=== PATIENT | female | born 1990 | race Caucasian/White ===

== ENCOUNTER 2019-10-17 14:22 | Inpatient (IN) | payer OTHER ==
[2019-10-17] MEDS ORDERED: morphine CARPU-JECT 4 MG/1 ML DISP.SYRIN IVPUSH ONE ×2 (15:12→17:33)
[2019-10-17] MEDS ORDERED: ACETAMINOPHEN 1000 MG/100 ML VIAL (NON FORMULARY) IVPB ONE (15:12)
[2019-10-17] MEDS ORDERED: MORPHINE SULFATE 2 MG/ML VIAL ONE (15:57)
[2019-10-17] MEDS ORDERED: VANCOMYCIN 1 GM in D5W (PRE-DOCKED) 1,000 MG/250 ML IVPB ONE (15:57)
[2019-10-17 16:36] LABS: INR 1.37 (0.83-1.09); PROTHROMBIN TIME (PATIENT) 16.2 SEC (9.7-13.0)
[2019-10-17 16:39] LABS: ACTIVATED PTT 22.8 SECONDS (25.2-36.5)
[2019-10-17] MEDS ORDERED: LACTATED RINGERS SOLUTION 1000 ML INFUS.BAG IV ONE (17:33)
[2019-10-17 18:06] LABS: BASO % 0.1 % (0-2.0); HEMATOCRIT 41.2 % (32.4-45.2); HEMOGLOBIN 13.6 GM/dL (10.7-15.3); LYMPH % 6.1 % (8-40); MCH 32.5 pg (25.7-33.7); MEAN CELL VOLUME 98.6 fl (80-96); MEAN PLT VOLUME 10.5 fl (7.5-11.1); MONO % 4.4 % (3.8-10.2); NEUT % 89.4 % (42.8-82.8); PLATELET COUNT 196 K/MM3 (134-434); RBC 4.18 M/mm3 (3.60-5.2); RDW 12.8 % (11.6-15.6); VENOUS PC02 38.9 mmHg (38-52); VENOUS PH 7.37 (7.31-7.41); WHITE BLOOD COUNT 11.5 K/mm3 (4.0-10.0)
[2019-10-17 18:07] LABS: VENOUS PO2 < 49 mmHg (28-48)
--- NOTE | 2019-10-17 18:27 | PDOC ---
History of Present Illness - General Chief Complaint: Pain Stated Complaint: VOMITING,FEVER Time Seen by Provider: 10/17/19 15:15 - History of Present Illness Initial Comments: The pt is a 28F w/ a history of asthma who presents for evaluation of fevers and abdominal pain. The pt is s/p liposuction yesterday. She states she has severe abdominal/back pain post-operatively. She tried taking Percocet at home with little relief. She endorses nausea w/o vomiting. She denies cough, congestion, generalized aches, or sick contacts. PMH: Asthma PSH: breast augmentation, buttocks fat transplantation Meds: Denies SH: Denies x3 10/17/19 18:37 Past History - Past Medical History Allergies/Adverse Reactions: Allergies Allergy/AdvReac Type Severity Reaction Status Date / Time No Known Allergies Allergy Verified 10/17/19 16:21 Review of Systems - Review of Systems Able to Perform ROS?: Yes Comments:: GENERAL/CONSTITUTIONAL: No chills. No weakness HEAD, EYES, EARS, NOSE AND THROAT: No change in vision. No change in hearing. No sore throat CARDIOVASCULAR: No chest pain or shortness of breath RESPIRATORY: Denies cough, hemoptysis GASTROINTESTINAL: No vomiting, diarrhea or constipation GENITOURINARY: No dysuria, frequency, or change in urination SKIN: +post op wounds and abdominal redness NEUROLOGIC: No headache, vertigo, loss of consciousness, or change in strength/ sensation ENDOCRINE: No increased thirst. No abnormal weight change HEMATOLOGIC/LYMPHATIC: No anemia, easy bleeding, or history of blood clots ALLERGIC/IMMUNOLOGIC: No hives or skin allergy 10/17/19 18:23 Is the patient limited Korean proficient: No *Physical Exam - Vital Signs Last Vital Signs Temp Pulse Resp BP Pulse Ox 100.1 F H 100 H 18 102/54 L 99 10/17/19 17:51 10/17/19 17:51 10/17/19 17:51 10/17/19 17:51 10/17/19 17:51 - Physical Exam GENERAL: Awake, alert, and oriented to person/place/time, in no acute distress HEAD: No signs of trauma, normoc ephalic, atraumatic EYES: PERRLA, EOMI, sclera anicteric, conjunctiva clear ENT: Hearing grossly normal, nares patent, oropharynx clear without exudates. Moist mucosa LUNGS: No distress, speaks in full sentences, clear to auscultation bilaterally HEART: Regular rate and rhythm, normal S1 and S2, no murmurs appreciated, peripheral pulses normal and equal bilaterally ABDOMEN: Soft, generally erythematous, surgical wounds without purulent drainage , no wound induration, dressings C/D/I EXTREMITIES: Normal inspection, Normal range of motion, no edema. No clubbing or cyanosis NEUROLOGICAL: Cranial nerves II through XII grossly intact. Normal speech, no focal sensorimotor deficits SKIN: Warm, Dry 10/17/19 20:44 ED Treatment Course - LABORATORY CBC & Chemistry Diagram: 10/17/19 15:30 10/17/19 17:12 - ADDITIONAL ORDERS Additional order review: Laboratory Results 10/17/19 10/17/19 15:30 15:30 PT with INR 16.20 H INR 1.37 H PTT (Actin FS) 22.8 L VBG pH 7.37 POC VBG pCO2 38.9 POC VBG pO2 < 49 H VBG HCO3 21.8 L VBG O2 Sat (Ceci) 51.6 L VBG Base Excess -2.6 L 10/17/19 15:30 RBC 4.18 MCV 98.6 H MCHC 33.0 RDW 12.8 MPV 10.5 Neutrophils % 89.4 H Lymphocytes % 6.1 L Monocytes % 4.4 Eosinophils % 0.0 Basophils % 0.1 - RADIOLOGY Radiology Studies Ordered: Category Date Time Status CHEST X-RAY PORTABLE* [RAD] Stat Radiology 10/17/19 15:43 Completed Radiograph Interpretation: CT/ABDOMEN & PELVIS CT WITH CONTR IMPRESSION: 1. Extensive subcutaneous emphysema throughout the abdomen and pelvis presumably related to recent procedures. Clinical correlation is advised. 2. No evidence of acute pathology within the abdomen or pelvis. Please see above discussion. 10/17/19 21:42 - Medications Given in the ED: ED Medications Discontinued Medications Generic Name Dose Route Start Last Admin Trade Name Freq PRN Reason Stop Dose Admin Acetaminophen 1,000 mg 10/17/19 15:12 10/17/19 16:10 Ofirmev Injection - IVPB 10/17/19 15:13 1,000 mg ONCE ONE Administration Morphine Sulfate 2 mg 10/17/19 15:12 10/17/19 16:10 Morphine Injection - IVPUSH 10/17/19 15:13 2 mg ONCE ONE Administration Vancomycin HCl 1,000 mg 10/17/19 15:57 10/17/19 17:02 Vancomycin (Pre-Docked) IVPB 10/17/19 15:58 1,000 mg ONCE ONE Administration Protocol Medical Decision Making - Medical Decision Making The pt is a 28F w/ a history of asthma who presents for evaluation of fevers and abdominal pain s/p liposuction yesterday Pt febrile with tachycardia Will treat with IV abx for presumed post op infection Mild leukocytosis No anemia Serum Preg 10/17/19 18:42 Lytes unremarkable Lactate wnl LFTs wnl Tbili noted but not likely biliary dz No SOLANGE CT A&P read pending 10/17/19 20:45 CT w/ extensive SQ emphysema, no intraabdominal pathology Pt signed out to Admitting team PT fever and tachycardia improving Plastic Surgeon: Marcelino Goldstein [phone] 10/17/19 21:42 Discharge - Discharge Information Problems reviewed: Yes Clinical Impression/Diagnosis: Tachycardia, Postoperative fever Fever Qualifiers: Fever type: unspecified Qualified Code(s): R50.9 - Fever, unspecified Condition: Stable - Admission Yes - Follow up/Referral - Patient Discharge Instructions - Post Discharge Activity
[2019-10-17 19:52] LABS: ALBUMIN 3.4 g/dl (3.4-5.0); BILIRUBIN,TOTAL 1.4 mg/dL (0.2-1); CALCIUM 8.3 mg/dL (8.5-10.1); CREATININE 0.7 mg/dL (0.55-1.3); POTASSIUM 3.6 mmol/L (3.5-5.1); TOT PROT 7.1 g/dl (6.4-8.2)
[2019-10-17] MEDS ORDERED: morphine SULFATE 4 MG/ML VIAL ONE (20:00)
--- NOTE | 2019-10-17 21:38 | PN ---
Teaching Attending Note Name of Resident: Gregor Sanchez ATTENDING PHYSICIAN STATEMENT I saw and evaluated the patient. I reviewed the resident's note and discussed the case with the resident. I agree with the resident's findings and plan as documented. SUBJECTIVE: 28-year-old woman with a history of asthma who underwent abdominal liposuction Via laparoscopic approach Lower abdomen as well as right lateral chest on 2019 under local anesthesia with plastic surgeon. Experienced severe back and abdominal pain for 1 day. Experienced some fevers and chills at home. Took Percocet at home without much relief. Is having BMs. In the emergency room was found to have a low-grade fever and was tachycardic. Abdomen/pelvis CT only showed some subcutaneous air status post recent procedure. Last Vital Signs Temp Pulse Resp BP Pulse Ox 99.2 F 90 16 104/56 L 98 10/18/19 00:55 10/18/19 00:55 10/18/19 00:55 10/18/19 00:55 10/18/19 00:55 GENERAL: Well developed, well nourished. Awake and alert. No acute distress. HEENT: Normocephalic, atraumatic. PERRLA, EOMI. No conjunctival pallor. Sclera are non- icteric. Moist mucous membranes. Oropharynx is clear. NECK: Supple. Full ROM. No JVD. Carotid pulses 2+ and symmetric, without bruits. No thyromegaly. No lymphadenopathy. CARDIOVASCULAR: Regular rate and rhythm. No murmurs, rubs, or gallops. Distal pulses are 2+ and symmetric. PULMONARY: No evidence of respiratory distress. Lungs clear to auscultation bilaterally. No wheezing, rales or rhonchi. ABDOMINAL: Laparoscopic approach scars in suprapubic region, right lateral chest appears to be healing well, no discharge appreciated, bowel sounds normal in 4 quadrants. Abdomen nondistended. Tenderness to palpation, seems to be out of proportion to findings. MUSCULOSKELETAL Normal range of motion at all joints. No bony deformities or tenderness. No CVA tenderness. EXTREMITIES: No cyanosis. No clubbing. No edema. No calf tenderness. SKIN: Warm and dry. Normal capillary refill. No rashes. No jaundice. PSYCHIATRIC: Cooperative. Good eye contact. Appropriate mood and affect. Abnormal Lab Results 10/17/19 10/17/19 10/17/19 15:30 15:30 15:30 WBC 11.5 H MCV 98.6 H Absolute Neuts (auto) 10.2 H Neutrophils % 89.4 H Lymphocytes % 6.1 L PT with INR 16.20 H INR 1.37 H PTT (Actin FS) 22.8 L POC VBG pO2 < 49 H VBG HCO3 21.8 L VBG O2 Sat (Ceci) 51.6 L VBG Base Excess -2.6 L Chloride Carbon Dioxide Random Glucose Calcium Total Bilirubin 10/17/19 17:12 WBC MCV Absolute Neuts (auto) Neutrophils % Lymphocytes % PT with INR INR PTT (Actin FS) POC VBG pO2 VBG HCO3 VBG O2 Sat (Ceci) VBG Base Excess Chloride 108 H Carbon Dioxide 20 L Random Glucose 114 H Calcium 8.3 L Total Bilirubin 1.4 H Imaging studies reviewed Extensive subcutaneous emphysema throughout the abdomen and pelvis presumably related to recent procedures. No CT evidence of acute appendicitis or diverticulitis. No evidence of acute bony pathology. Examination of pelvis demonstrates no evidence of pelvic masses, fluid collections or lymphadenopathy. ASSESSMENT AND PLAN: Sepsis secondary to abdominal postoperative site infection. Tachycardia, leukocytosis, low-grade fever. No drainable fluid collection seen on abdomen pelvis CT. Blood cultures x2 Vancomycin and Zosyn empirically Follow-up official CT of abdomen pelvis report ID consult IV fluid hydration Pain controlMorphine IV as needed Zofran IV as needed if nausea and vomiting EKG DVT prophylaxis with heparin subcutaneously
--- NOTE | 2019-10-17 21:49 | HP ---
CHIEF COMPLAINT: Lower back pain with nausea for the past 12 hours PCP: None HISTORY OF PRESENT ILLNESS: This is a 28 year old female with PMH of asthma and psoriasis. She resented to the ER with complaints of lower back pain associated with subjective fevers, 1 episode of NBNB vomiting, and nausea for the past 12 hours. She is POD#1 after liposuction (Woo Goldstein in [place]). She felt mild, generalized soreness after the procedure yesterday evening, which she attributed to post op pain. She endorsed nausea, and 1 episode of NBNB vomiting after consuming pasta. This morning at 8AM she felt dizzy, and fell down while she was walking to the bathroom. There was no LOC or head trauma , and she landed on her buttocks. Around 10AM she felt sudden onset, sharp, severe, persistent, non radiating lower back, rated 10/10 in intensity. She took Xanax and Percocet, which did not provide any relief. She endorses dizziness, light headedness, nausea, palpitations, but no SOB, chest pain, diarrhea, constipation, dysuria, urgency, or hematuria. She has had breast augmentation and a buttock lift in the past, without any similar complications. ER course was notable for: (1) WBC 11.5, Temp 102.4, HR 100, LA normal (2) CT AP: Extensive subcutaneous emphysema throughout abdomen and pelvis with no acute pathlogy (3) CXR: No evidence of atelectasis Recent Travel: None PAST MEDICAL HISTORY: Asthma (takes albuterol), and psoriasis (tried cortisone once) PAST SURGICAL HISTORY: Multiple abortions (patient unable to quantify), last one in August Breast and buttock augmentation in 2013 Appendectomy 2008 Social History: Smoking: None Alcohol: None Drugs: None She is unsure when her LMP was, but states that her menses had been regular until 5 days ago when she took Plan B. She is currently only sexually active with her partner, and uses only Plan B multiple times a month (4-5) for contraception. She has had multiple abortions in the past, last one in August 2019 (unable to quantify). Allergies Oysters No Known Allergies Allergy (Verified 10/17/19 16:21) HOME MEDICATIONS: REVIEW OF SYSTEMS CONSTITUTIONAL: Fevers, chills Absent: diaphoresis, generalized weakness, malaise, loss of appetite, weight change HEENT: Absent: rhinorrhea, nasal congestion, throat pain, throat swelling, difficulty swallowing, mouth swelling, ear pain, eye pain, visual changes CARDIOVASCULAR: palpitations, lightheadedness Absent: chest pain, syncope, irregular heart rate, peripheral edema RESPIRATORY: Absent: cough, shortness of breath, dyspnea with exertion, orthopnea, wheezing, stridor, hemoptysis GASTROINTESTINAL: nausea, vomiting, Absent: abdominal pain, abdominal distension, diarrhea, constipation, melena, hematochezia GENITOURINARY: Absent: dysuria, frequency, urgency, hesitancy, hematuria, flank pain, genital pain MUSCULOSKELETAL: Absent: myalgia, arthralgia, joint swelling, back pain, neck pain SKIN: Absent: rash, itching, pallor HEMATOLOGIC/IMMUNOLOGIC: Absent: easy bleeding, easy bruising, lymphadenopathy, frequent infections ENDOCRINE: Absent: unexplained weight gain, unexplained weight loss, heat intolerance, cold intolerance NEUROLOGIC: Absent: headache, focal weakness or paresthesias, dizziness, unsteady gait, seizure, mental status changes, bladder or bowel incontinence PSYCHIATRIC: Absent: anxiety, depression, suicidal or homicidal ideation, hallucinations. PHYSICAL EXAMINATION Vital Signs - 24 hr 10/17/19 17:51 Temperature 100.1 F H Pulse Rate [ 100 H Radial] Respiratory 18 Rate Blood Pressure 102/54 L [Right Arm] O2 Sat by Pulse 99 Oximetry (%) GENERAL: Awake, alert, and fully oriented, in no acute distress. HEAD: Normal with no signs of trauma. EYES: Pupils equal, round and reactive to light, extraocular movements intact, sclera anicteric, conjunctiva clear. No lid lag. EARS, NOSE, THROAT: Ears normal, nares patent, oropharynx clear without exudates NECK: Normal range of motion, supple without lymphadenopathy, JVD, or masses. LUNGS: Breath sounds equal, clear to auscultation bilaterally. No wheezes, and no crackles. No accessory muscle use. HEART: Regular rate and rhythm, normal S1 and S2 without murmur, rub or gallop. ABDOMEN: soft, mild, generalized, patchy erythema, non tender, mildly distended , supra and infra umbilical laproscopic incision sites without drainage or fluctuation. Lower back spinal as well as paraspinal tenderness with emphysema, laproscopic flank incision sites with mild erythema, mild serous discharge on he left incision site with no tenderness to palpation. MUSCULOSKELETAL: Normal range of motion at all joints. No bony deformities or tenderness. No CVA tenderness. UPPER EXTREMITIES: 2+ pulses, warm, well-perfused. No cyanosis. No clubbing. No peripheral edema. LOWER EXTREMITIES: 2+ pulses, warm, well-perfused. No calf tenderness. No peripheral edema. NEUROLOGICAL: Cranial nerves II-XII intact. Normal speech. Normal gait. PSYCHIATRIC: Cooperative. Good eye contact. Appropriate mood and affect. SKIN: Scaly, eczematous patch on left elbow Laboratory Results - last 24 hr 10/17/19 10/17/19 10/17/19 15:30 15:30 15:30 WBC 11.5 H RBC 4.18 Hgb 13.6 Hct 41.2 MCV 98.6 H MCH 32.5 MCHC 33.0 RDW 12.8 Plt Count 196 MPV 10.5 Absolute Neuts (auto) 10.2 H Neutrophils % 89.4 H Lymphocytes % 6.1 L Monocytes % 4.4 Eosinophils % 0.0 Basophils % 0.1 Nucleated RBC % 0 PT with INR 16.20 H INR 1.37 H PTT (Actin FS) 22.8 L VBG pH POC VBG pCO2 POC VBG pO2 VBG HCO3 VBG O2 Sat (Ceci) VBG Base Excess Sodium Cancelled Potassium Cancelled Chloride Cancelled Carbon Dioxide Cancelled Anion Gap Cancelled BUN Cancelled Creatinine Cancelled Est GFR (CKD-EPI)AfAm Cancelled Est GFR (CKD-EPI)NonAf Cancelled Random Glucose Cancelled Lactic Acid Calcium Cancelled Total Bilirubin Cancelled AST Cancelled ALT Cancelled Alkaline Phosphatase Cancelled Total Protein Cancelled Albumin Cancelled Serum , Qual 10/17/19 10/17/19 10/17/19 15:30 15:30 15:30 WBC RBC Hgb Hct MCV MCH MCHC RDW Plt Count MPV Absolute Neuts (auto) Neutrophils % Lymphocytes % Monocytes % Eosinophils % Basophils % Nucleated RBC % PT with INR INR PTT (Actin FS) VBG pH 7.37 POC VBG pCO2 38.9 POC VBG pO2 < 49 H VBG HCO3 21.8 L VBG O2 Sat (Ceci) 51.6 L VBG Base Excess -2.6 L Sodium Potassium Chloride Carbon Dioxide Anion Gap BUN Creatinine Est GFR (CKD-EPI)AfAm Est GFR (CKD-EPI)NonAf Random Glucose Lactic Acid 1.6 Calcium Total Bilirubin AST ALT Alkaline Phosphatase Total Protein Albumin Serum , Qual Negative 10/17/19 17:12 WBC RBC Hgb Hct MCV MCH MCHC RDW Plt Count MPV Absolute Neuts (auto) Neutrophils % Lymphocytes % Monocytes % Eosinophils % Basophils % Nucleated RBC % PT with INR INR PTT (Actin FS) VBG pH POC VBG pCO2 POC VBG pO2 VBG HCO3 VBG O2 Sat (Ceci) VBG Base Excess Sodium 137 Potassium 3.6 Chloride 108 H Carbon Dioxide 20 L Anion Gap 9 BUN 8.0 Creatinine 0.7 Est GFR (CKD-EPI)AfAm 136.66 Est GFR (CKD-EPI)NonAf 117.91 Random Glucose 114 H Lactic Acid Calcium 8.3 L Total Bilirubin 1.4 H AST 19 ALT 20 Alkaline Phosphatase 66 Total Protein 7.1 Albumin 3.4 Serum , Qual ASSESSMENT/PLAN: 28F with PMH of asthma and psoriasis, presented to the ER with complaints of lower back pain associated with subjective fevers, 1 episode of NBNB vomiting, and nausea for the past 12 hours. She is POD#1 after liposuction #Sepsis - Sepsis likely 2/2 post-op wound infection - SIRS 3/4: WBC 11.4, Temp 102, HR 100 on admission - LA 1.6 - Blood, urine cx pending - B HcG negative - UA pending - CT AP: Extensive subcutaneous emphysema throughout abdomen and pelvis with no acute pathlogy - CXR: No evidence of atelectasis - ID (Dr. Steiner) consulted - Started on Zosyn 3.375 Q8 and Vanco 1g Q12 - Morphine 2mg Q6H for pain #Bilirubinemia - Bili 1.6, mildly elevated, no RUQ pain, fever, signs of jaundice, or hemolytic anemia in labs, low suspicion of underlying pathology - Will continue to monitor #Hx of Psoriasis - Eczematous patch on left elbow - Outpatient F/U with dermatology #FEN - N/S @ 100 - Cl 108 - Glucose 114 - Ca 8.3 - F/U CMP in AM - Regular diet #DVT PE - Heparin 5000 BID Visit type - Emergency Visit Emergency Visit: Yes ED Registration Date: 10/17/19 Care time: The patient presented to the Emergency Department on the above date and was hospitalized for further evaluation of their emergent condition. - New Patient This patient is new to me today: Yes Date on this admission: 10/18/19 - Critical Care Critical Care patient: No ATTENDING PHYSICIAN STATEMENT I saw and evaluated the patient. I reviewed the resident's note and discussed the case with the resident. I agree with the resident's findings and plan as documented. SUBJECTIVE: OBJECTIVE: ASSESSMENT AND PLAN:
[2019-10-17] MEDS ORDERED: HEPARIN NA (PORCINE) 5,000 UNITS/ML 1ML VIAL SQ SCH (22:00)
--- NOTE | 2019-10-17 22:14 | PDOC ---
Attending Attestation - Resident Resident Name: Camron Georges - ED Attending Attestation I have performed the following: I have examined & evaluated the patient, The case was reviewed & discussed with the resident, I agree w/resident's findings & plan - HPI HPI: 10/17/19 22:10 28F w/ a history of asthma who presents for evaluation of fevers and abdominal pain a/w n/v today. The pt is s/p liposuction yesterday, under local anesthesia with plastic surgeon Dr Goldstein, procedure uncomplicated. She states she has severe abdominal/back pain post-operatively beginning today. She tried taking Percocet at home with little relief. BM reduced +flatus. plastic surgeon: Dr Woo Goldstein - Physicial Exam PE: 10/17/19 22:11 malaised appearing, EOMI, PERRL, nl conjunctiva, anicteric, MMM, oropharynx clear RRR, lungs clear, abdomen nondistended, soft, +diffusely tender. no CVAT, diffuse back tenderness. no rebound. +vol guarding. small incisional wounds visualized, no purulence or dehiscence WWP, no rash COBB x 4 no focal neuro deficits. no calf tenderness - Medical Decision Making 10/17/19 22:12 Vital Signs Temp Pulse Resp BP Pulse Ox 100.1 F H 100 H 18 102/54 L 99 10/17/19 17:51 10/17/19 17:51 10/17/19 17:51 10/17/19 17:51 10/17/19 17:51 vitals with +fever and border tachy ddx, perforation, obstruction, post op fever, atelectasis, pna, UTI, wound infection, labs and lytes with mild wbc ct not labs and lytes wnl CT a/p post op changes, no obs/perf, sq emphysema. IV abx, antipyretic, IVF admission for post op fever and medical management. 10/17/19 22:14
[2019-10-17] MEDS ORDERED: PIPERACILLIN/TAZOB 3.375 GM 3.375 GM/50 ML BAG IVPB ONE (23:16)
[2019-10-17] MEDS ORDERED: HEPARIN NA (PORCINE) 5,000 UNITS/ML 1ML VIAL ONE (23:16)
[2019-10-17] MEDS: SODIUM CHLORIDE 1,000 ML IV SCH (23:30)
[2019-10-17] MEDS: PIPERACILLIN/TAZOB 3.375 GM 3.375 GM in DEXTROSE 5%-WATER - 50 ML IVPB SCH (23:30)
[2019-10-18] MEDS ORDERED: traMADol HCL 50 MG TABLET ONE (02:35)
[2019-10-18] MEDS ORDERED: traMADol HCL 50 MG TABLET PO ONE (02:45)
[2019-10-18] MEDS ORDERED: VANCOMYCIN 1,000 MG in DEXTROSE 5%-WATER - 250 ML IVPB SCH (04:00)
[2019-10-18] MEDS ORDERED: ONDANSETRON 4 MG/2 ML VIAL IVPUSH PRN (04:12)
[2019-10-18] MEDS ORDERED: VANCOMYCIN 1 GRAM (PRE-DOCKED) 1,000 MG/250 ML BAG IVPB ONE ×2 (04:32→17:47)
[2019-10-18] MEDS: VANCOMYCIN 1 GRAM (PRE-DOCKED) 1,000 MG/250 ML BAG IVPB SCH ×2 (04:39→18:30)
[2019-10-18 05:26] LABS: EPI CELLS 1.6 /HPF (0-5/HPF); HYALINE CASTS 1 /lpf (0-8); URINE APPEARANCE CLEAR; URINE BACTERIA 56.1 /hpf (NEGATIVE); URINE BILIRUBIN NEGATIVE (NEGATIVE); URINE COLOR YELLOW; URINE GLUCOSE (UA) NEGATIVE (NEGATIVE); URINE KETONE 4+ (NEGATIVE); URINE LEUK ESTERASE NEGATIVE (NEGATIVE); URINE NITRITE NEGATIVE (NEGATIVE); URINE PROTEIN NEGATIVE (NEGATIVE); URINE RBC 3 /hpf (0-4); URINE WBC 2 /hpf (0-5)
[2019-10-18] MEDS ORDERED: morphine CARPU-JECT 4 MG/1 ML DISP.SYRIN IVPUSH PRN (06:00)
[2019-10-18 06:46] LABS: BASO % 0.2 % (0-2.0); EOS % 0.1 % (0-4.5); HEMATOCRIT 34.8 % (32.4-45.2); HEMOGLOBIN 11.8 GM/dL (10.7-15.3); LYMPH % 13.9 % (8-40); MCH 33.3 pg (25.7-33.7); MEAN PLT VOLUME 9.9 fl (7.5-11.1); MONO % 5.4 % (3.8-10.2); NEUT % 80.4 % (42.8-82.8); PLATELET COUNT 166 K/MM3 (134-434); RBC 3.55 M/mm3 (3.60-5.2); RDW 12.6 % (11.6-15.6); WHITE BLOOD COUNT 10.3 K/mm3 (4.0-10.0)
[2019-10-18 07:05] LABS: BILIRUBIN,TOTAL 1.4 mg/dL (0.2-1); BLOOD UREA NITROGEN 6.6 mg/dL (7-18); CALCIUM 8.1 mg/dL (8.5-10.1); CREATININE 0.7 mg/dL (0.55-1.3); POTASSIUM 3.3 mmol/L (3.5-5.1); TOT PROT 6.6 g/dl (6.4-8.2)
[2019-10-18] MEDS ORDERED: MORPHINE SULFATE 2 MG/ML VIAL ONE ×3 (07:51→17:49)
[2019-10-18] MEDS: MORPHINE SULFATE 2 MG/ML VIAL IVPUSH PRN ×4 (07:57→22:17)
[2019-10-18] MEDS ORDERED: POTASSIUM CHLORIDE TABS 20 MEQ TABLET.ER (FP) PO ONE ×2 (08:00→18:43)
[2019-10-18] MEDS: ALBUTEROL SO4 0.083% IH SOL 2.5 MG/3 ML VIAL.NEB. NEB SCH ×4 (09:00→20:21)
--- NOTE | 2019-10-18 09:56 | EKG ---
Test Reason : Blood Pressure : / mmHG Vent. Rate : 107 BPM Atrial Rate : 107 BPM P-R Int : 148 ms QRS Dur : 086 ms QT Int : 338 ms P-R-T Axes : 078 034 055 degrees QTc Int : 451 ms SINUS TACHYCARDIA NONSPECIFIC T WAVE ABNORMALITY ABNORMAL ECG NO PREVIOUS ECGS AVAILABLE Confirmed by BISMARK KENNEDY, JUAN ([id number]) on 10/18/2019 9:55:20 AM Referred By: Confirmed By:JUAN SOFIA MD
[2019-10-18] MEDS: PIPERACILLIN/TAZOB 3.375 GM 3.375 GM in DEXTROSE 5%-WATER - 50 ML IVPB SCH ×3 (10:00→22:03)
[2019-10-18] MEDS ORDERED: PIPERACILLIN/TAZOB 3.375 GM 3.375 GM/50 ML BAG IVPB ONE (10:21)
[2019-10-18] MEDS ORDERED: POTASSIUM CHLORIDE ORAL LIQUID 20 MEQ/15 ML ONE (10:32)
--- NOTE | 2019-10-18 12:22 | CON.ID ---
Consult Consult Specialty:: infectious diseases Referred by:: hospitalist Reason for Consultation:: abd pain,post liposuction - Smoking History Smoking history: Never smoked Home Medications - Allergies Allergies/Adverse Reactions: Allergies Allergy/AdvReac Type Severity Reaction Status Date / Time No Known Allergies Allergy Verified 10/17/19 16:21 - Home Medications Home Medications: Ambulatory Orders NK [No Known Home Medication] 10/18/19 Physical Exam Vital Signs: Vital Signs Temperature 99.5 F 10/18/19 07:38 Pulse Rate 92 H 10/18/19 07:38 Respiratory Rate 18 10/18/19 07:38 Blood Pressure 111/58 L 10/18/19 07:38 O2 Sat by Pulse Oximetry (%) 98 10/18/19 07:38 Labs: CBC, BMP 10/18/19 05:48 10/18/19 05:48
[2019-10-18] MEDS ORDERED: ALBUTEROL SO4 0.083% IH SOL 2.5 MG/3 ML VIAL.NEB. NEB ONE ×2 (12:27→17:47)
--- NOTE | 2019-10-18 16:59 | PN ---
Physical Exam: SUBJECTIVE: Patient seen and examined OBJECTIVE: Vital Signs Period Temp Pulse Resp BP Sys/Dean Pulse Ox Last 24 Hr 99 F-100.1 F 90-104 16-18 102-111/54-58 97-99 GENERAL: AOx3, mild acute distress. EYES: PERRL, extraocular movements intact, No ptosis. ENT: oropharynx clear without exudates, moist mucous membranes. NECK: Trachea midline, full range of motion, supple. LUNGS: Breath sounds equal, clear to auscultation bilaterally, no wheezes, no crackles, HEART: Regular rate and rhythm, S1, S2 without murmur, rub or gallop. ABDOMEN: Soft, nontender, nondistended, normoactive bowel sounds, no guarding, surgical scar intact, no pus, no erythema no drainage. B EXTREMITIES: 2+ pulses, warm, well-perfused, no edema. Back: large area of erythema from T10- S1, mild swelling under the skin noted, very tender to touch. NEUROLOGICAL: Normal speech, gait not observed. Neuro strength 5/5 b/l UE and LE, sensation 5/5 UE and LE b/l SKIN: Warm, dry, normal turgor, no rashes or lesions noted Laboratory Results - last 24 hr CBC,CMP WBC 10.3 K/mm3 (4.0-10.0) H 10/18/19 05:48 RBC 3.55 M/mm3 (3.60-5.2) L 10/18/19 05:48 Hgb 11.8 GM/dL (10.7-15.3) 10/18/19 05:48 Hct 34.8 % (32.4-45.2) D 10/18/19 05:48 MCV 98.0 fl (80-96) H 10/18/19 05:48 MCH 33.3 pg (25.7-33.7) 10/18/19 05:48 MCHC 34.0 g/dl (32.0-36.0) 10/18/19 05:48 RDW 12.6 % (11.6-15.6) 10/18/19 05:48 Plt Count 166 K/MM3 (134-434) 10/18/19 05:48 MPV 9.9 fl (7.5-11.1) 10/18/19 05:48 Absolute Neuts (auto) 8.3 K/mm3 (1.5-8.0) H 10/18/19 05:48 Neutrophils % 80.4 % (42.8-82.8) 10/18/19 05:48 Lymphocytes % 13.9 % (8-40) D 10/18/19 05:48 Monocytes % 5.4 % (3.8-10.2) 10/18/19 05:48 Eosinophils % 0.1 % (0-4.5) D 10/18/19 05:48 Basophils % 0.2 % (0-2.0) 10/18/19 05:48 Nucleated RBC % 0 % (0-0) 10/18/19 05:48 Sodium 135 mmol/L (136-145) L 10/18/19 05:48 Potassium 3.3 mmol/L (3.5-5.1) L 10/18/19 05:48 Chloride 105 mmol/L (98-107) 10/18/19 05:48 Carbon Dioxide 23 mmol/L (21-32) 10/18/19 05:48 Anion Gap 6 MMOL/L (8-16) L 10/18/19 05:48 BUN 6.6 mg/dL (7-18) L 10/18/19 05:48 Creatinine 0.7 mg/dL (0.55-1.3) 10/18/19 05:48 Est GFR (CKD-EPI)AfAm 136.66 10/18/19 05:48 Est GFR (CKD-EPI)NonAf 117.91 10/18/19 05:48 Random Glucose 145 mg/dL (74-106) H 10/18/19 05:48 Lactic Acid 1.6 mmol/L (0.4-2.0) 10/17/19 15:30 Calcium 8.1 mg/dL (8.5-10.1) L 10/18/19 05:48 Total Bilirubin 1.4 mg/dL (0.2-1) H 10/18/19 05:48 AST 16 U/L (15-37) 10/18/19 05:48 ALT 17 U/L (13-61) 10/18/19 05:48 Alkaline Phosphatase 62 U/L (45-117) 10/18/19 05:48 Total Protein 6.6 g/dl (6.4-8.2) 10/18/19 05:48 Albumin 3.0 g/dl (3.4-5.0) L 10/18/19 05:48 Serum , Qual Negative 10/17/19 15:30 Active Medications Current Medications Albuterol Sulfate (Ventolin 0.083% Nebulizer Soln -) 1 amp NEB RQID [facility] Last Admin: 10/18/19 12:23 Dose: 1 amp Heparin Sodium (Porcine) (Heparin -) 5,000 unit SQ TID DUANE Sodium Chloride (Normal Saline -) 1,000 mls @ 100 mls/hr IV ASDIR DUANE Last Admin: 10/17/19 23:30 Dose: 100 mls/hr Vancomycin HCl (Vancomycin (Pre-Docked)) 1,000 mg in 250 mls @ 166.667 mls/hr IVPB Q12H [facility] Stop: 10/18/19 17:29 Last Admin: 10/18/19 04:39 Dose: 166.667 mls/hr Piperacillin Sod/Tazobactam (Sod 2.25 gm/ Dextrose) 50 mls @ 100 mls/hr IVPB Q8H-IV DUANE; Protocol Morphine Sulfate (Morphine Sulfate) 2 mg IVPUSH Q4H PRN PRN Reason: PAIN LEVEL 6-10 Last Admin: 10/18/19 12:33 Dose: 2 mg Ondansetron HCl (Zofran Injection) 4 mg IVPUSH Q6H PRN PRN Reason: NAUSEA Home Medications Medication Instructions Recorded NK [No Known Home Medication] 10/18/19 ASSESSMENT/PLAN: 28 y/o F with PMH of asthma, psoriasis, and s/p Liposuction POD2 in [place], presented c/o of lower back pain associated with subjective fevers, 1 episode of NBNB vomiting, and nausea #Back pain likely 2/2 to cellulitis erythema, tenderness and swelling WBC trending down, afebrile BCx and UCx pending CT- Extensive subcutaneous emphysema throughout abdomen and pelvis with no acute pathlogy CXR: No evidence of atelectasis Pt on Zosyn and Vanco ID consult pending morphine 2mg Q6H for pain Potassium 20 given monitor potassium in am Plastic surgery consulted- Dr. Dk Swain- pending #Hyperbili T-bili still at 1.4 no RUQ pain, no systemic signs of infection, jaundice, anemia LFTs otherwise normal monitor for now FEN IVF at 100 monitor lytes regular diet Dispo: f/u ID recom, cont abx, f/u plastic surgery- Dr. Swain Visit type - Emergency Visit Emergency Visit: Yes ED Registration Date: 10/17/19 Care time: The patient presented to the Emergency Department on the above date and was hospitalized for further evaluation of their emergent condition. - New Patient This patient is new to me today: Yes Date on this admission: 10/19/19 - Critical Care Critical Care patient: No - Discharge Referral Referred to [id number] Med P.C.: No ATTENDING PHYSICIAN STATEMENT I saw and evaluated the patient. I reviewed the resident's note and discussed the case with the resident. I agree with the resident's findings and plan as documented. SUBJECTIVE: OBJECTIVE: ASSESSMENT AND PLAN:
[2019-10-18] MEDS: HEPARIN NA (PORCINE) 5,000 UNITS/ML 1ML VIAL SQ SCH ×2 (17:00→22:23)
[2019-10-18] MEDS ORDERED: PIPERACILLIN/TAZOB 2.25 GM 2.25 GM/50 ML BAG IVPB ONE (17:47)
[2019-10-18] MEDS ORDERED: HEPARIN NA (PORCINE) 5,000 UNITS/ML 1ML VIAL ONE ×2 (17:47→17:50)
[2019-10-18] MEDS ORDERED: ACETAMINOPHEN 325 MG TABLET (FP) ONE (17:49)
[2019-10-18] MEDS: PIPERACILLIN/TAZOB 2.25 GM 2.25 GM in DEXTROSE 5%-WATER - 50 ML IVPB SCH (18:20)
--- NOTE | 2019-10-18 18:42 | PN ---
Teaching Attending Note Name of Resident: Alon Mead ATTENDING PHYSICIAN STATEMENT I saw and evaluated the patient. I reviewed the resident's note and discussed the case with the resident. I agree with the resident's findings and plan as documented. SUBJECTIVE: complains of back and abdominal wall pain/tenderness. Low grade fever. No nausea/vomiting. OBJECTIVE: Tmax 100.3. Hemodynamically Stable. Last Vital Signs Temp Pulse Resp BP Pulse Ox 100.2 F H 103 H 18 109/59 L 98 10/18/19 17:47 10/18/19 17:47 10/18/19 07:38 10/18/19 17:47 10/18/19 17:47 HEENT - Atraumatic, Normocephalic. Heart - S1, S2, RRR Lungs - clear to auscultation Abdomen/Back - erythema/tenderness of skin. No collections or discharge from trochar sites. Abdomen soft, bowel Sounds normal. Extremities - no edema, no calf tenderness. Neuro - AAO x 3. Tone/Power normal all extremities. Laboratory Results - last 24 hr 10/17/19 10/17/19 10/17/19 15:30 15:30 17:12 WBC RBC Hgb Hct MCV MCH MCHC RDW Plt Count MPV Absolute Neuts (auto) Neutrophils % Lymphocytes % Monocytes % Eosinophils % Basophils % Nucleated RBC % Sodium Cancelled 137 Potassium Cancelled 3.6 Chloride Cancelled 108 H Carbon Dioxide Cancelled 20 L Anion Gap Cancelled 9 BUN Cancelled 8.0 Creatinine Cancelled 0.7 Est GFR (CKD-EPI)AfAm Cancelled 136.66 Est GFR (CKD-EPI)NonAf Cancelled 117.91 Random Glucose Cancelled 114 H Lactic Acid 1.6 Calcium Cancelled 8.3 L Total Bilirubin Cancelled 1.4 H AST Cancelled 19 ALT Cancelled 20 Alkaline Phosphatase Cancelled 66 Total Protein Cancelled 7.1 Albumin Cancelled 3.4 Urine Color Urine Appearance Urine pH Ur Specific Ceres Urine Protein Urine Glucose (UA) Urine Ketones Urine Blood Urine Nitrite Urine Bilirubin Urine Urobilinogen Ur Leukocyte Esterase Urine WBC (Auto) Urine RBC (Auto) Urine Casts (Auto) U Epithel Cells (Auto) Urine Bacteria (Auto) Urine HCG, Qual Influenza A (Rapid) Influenza B (Rapid) 10/18/19 10/18/19 10/18/19 04:00 04:00 04:05 WBC RBC Hgb Hct MCV MCH MCHC RDW Plt Count MPV Absolute Neuts (auto) Neutrophils % Lymphocytes % Monocytes % Eosinophils % Basophils % Nucleated RBC % Sodium Potassium Chloride Carbon Dioxide Anion Gap BUN Creatinine Est GFR (CKD-EPI)AfAm Est GFR (CKD-EPI)NonAf Random Glucose Lactic Acid Calcium Total Bilirubin AST ALT Alkaline Phosphatase Total Protein Albumin Urine Color Yellow Urine Appearance Clear Urine pH 6.0 Ur Specific Ceres 1.028 Urine Protein Negative Urine Glucose (UA) Negative Urine Ketones 4+ H Urine Blood Trace Urine Nitrite Negative Urine Bilirubin Negative Urine Urobilinogen 1.0 Ur Leukocyte Esterase Negative Urine WBC (Auto) 2 Urine RBC (Auto) 3 Urine Casts (Auto) 1 U Epithel Cells (Auto) 1.6 Urine Bacteria (Auto) 56.1 Urine HCG, Qual Negative Influenza A (Rapid) Negative Influenza B (Rapid) Negative 10/18/19 10/18/19 05:48 05:48 WBC 10.3 H RBC 3.55 L Hgb 11.8 Hct 34.8 D MCV 98.0 H MCH 33.3 MCHC 34.0 RDW 12.6 Plt Count 166 MPV 9.9 Absolute Neuts (auto) 8.3 H Neutrophils % 80.4 Lymphocytes % 13.9 D Monocytes % 5.4 Eosinophils % 0.1 D Basophils % 0.2 Nucleated RBC % 0 Sodium 135 L Potassium 3.3 L Chloride 105 Carbon Dioxide 23 Anion Gap 6 L BUN 6.6 L Creatinine 0.7 Est GFR (CKD-EPI)AfAm 136.66 Est GFR (CKD-EPI)NonAf 117.91 Random Glucose 145 H Lactic Acid Calcium 8.1 L Total Bilirubin 1.4 H AST 16 ALT 17 Alkaline Phosphatase 62 Total Protein 6.6 Albumin 3.0 L Urine Color Urine Appearance Urine pH Ur Specific Ceres Urine Protein Urine Glucose (UA) Urine Ketones Urine Blood Urine Nitrite Urine Bilirubin Urine Urobilinogen Ur Leukocyte Esterase Urine WBC (Auto) Urine RBC (Auto) Urine Casts (Auto) U Epithel Cells (Auto) Urine Bacteria (Auto) Urine HCG, Qual Influenza A (Rapid) Influenza B (Rapid) Current Medications Generic Name Dose Route Start Last Admin Trade Name Freq PRN Reason Stop Dose Admin Albuterol Sulfate 1 amp 10/18/19 08:00 10/18/19 12:23 Ventolin 0.083% Nebulizer Soln - NEB 1 amp RQID DUANE Administration Heparin Sodium (Porcine) 5,000 unit 10/18/19 14:00 10/18/19 17:00 Heparin - SQ 5,000 unit TID DUANE Administration Sodium Chloride 1,000 mls @ 100 mls/hr 10/17/19 22:00 10/17/19 23:30 Normal Saline - IV 100 mls/hr ASDIR DUANE Administration Piperacillin Sod/Tazobactam 50 mls @ 100 mls/hr 10/18/19 18:00 10/18/19 18:20 Sod 2.25 gm/ Dextrose IVPB 100 mls/hr Q8H-IV DUANE Administration Protocol Morphine Sulfate 2 mg 10/18/19 06:00 10/18/19 18:24 Morphine Sulfate IVPUSH 2 mg Q4H PRN Administration PAIN LEVEL 6-10 Ondansetron HCl 4 mg 10/18/19 04:12 Zofran Injection IVPUSH Q6H PRN NAUSEA Home Medications Medication Instructions Recorded NK [No Known Home Medication] 10/18/19 ASSESSMENT AND PLAN: 28 year old female with history of Asthma, s/p abdominal liposuction abdomen/ flank 10/16/2019 under local anesthesia with plastic surgeon in [place], presents with erythema/pain/tenderss over abdominal wall and back with associated subjective fevers and chills. Abdomen/pelvis CT showed extensive subcutaneous air throughout the abdomen and pelvis presumably related to recent procedure. 1. Sepsis secondary to Post-op liposuction CT findings as above, with no drainanble collection. Blood Cx neg. Continue IV hydration and ID consult. Received IV Zosyn/Vanco in ED, Zosyn only continued by ID. Morphine analgesia Plastic Surgery consult. 2. Asthma - Stable. No evidence of acute exacerbations. Albuterol PRN. 3. Hypokalemia - repleted. DVT Px - Heparin SQ
[2019-10-18] MEDS ORDERED: ACETAMINOPHEN 325 MG TABLET (FP) PO PRN (19:39)
[2019-10-18] MEDS: SODIUM CHLORIDE 1,000 ML IV SCH (22:30)
[2019-10-19] MEDS ORDERED: DEXTROSE 5%-WATER - 50 ML IVPB ONE ×4 (01:03→17:54)
[2019-10-19] MEDS ORDERED: PIPERACILLIN/TAZOBACTAM 2.25 GM VIAL IVPB ONE ×4 (01:03→17:54)
[2019-10-19] MEDS: PIPERACILLIN/TAZOB 2.25 GM 2.25 GM in DEXTROSE 5%-WATER - 50 ML IVPB SCH ×3 (01:43→18:01)
[2019-10-19 02:50] VITALS: BMI 25.8
[2019-10-19] MEDS: MORPHINE SULFATE 2 MG/ML VIAL IVPUSH PRN ×3 (03:09→23:06)
[2019-10-19] MEDS: HEPARIN NA (PORCINE) 5,000 UNITS/ML 1ML VIAL SQ SCH ×3 (06:43→21:37)
[2019-10-19] MEDS: ALBUTEROL SO4 0.083% IH SOL 2.5 MG/3 ML VIAL.NEB. NEB SCH ×4 (08:00→21:35)
[2019-10-19 08:36] LABS: HEMATOCRIT 32.8 % (32.4-45.2); HEMOGLOBIN 10.9 GM/dL (10.7-15.3); MCH 32.6 pg (25.7-33.7); MCHC 33.1 g/dl (32.0-36.0); MEAN CELL VOLUME 98.4 fl (80-96); MEAN PLT VOLUME 9.4 fl (7.5-11.1); PLATELET COUNT 176 K/MM3 (134-434); RBC 3.33 M/mm3 (3.60-5.2); RDW 12.8 % (11.6-15.6); WHITE BLOOD COUNT 8.6 K/mm3 (4.0-10.0)
[2019-10-19] MEDS ORDERED: traMADol HCL 50 MG TABLET PO ONE (08:45)
[2019-10-19 09:01] LABS: ALBUMIN 2.8 g/dl (3.4-5.0); BLOOD UREA NITROGEN 4.2 mg/dL (7-18); CALCIUM 8.3 mg/dL (8.5-10.1); CREATININE 0.6 mg/dL (0.55-1.3); TOT PROT 6.5 g/dl (6.4-8.2)
[2019-10-19] MEDS: SODIUM CHLORIDE 1,000 ML IV SCH ×2 (09:07→21:32)
--- NOTE | 2019-10-19 11:59 | PN ---
Teaching Attending Note Name of Resident: Alon Mead ATTENDING PHYSICIAN STATEMENT I saw and evaluated the patient. I reviewed the resident's note and discussed the case with the resident. I agree with the resident's findings and plan as documented. SUBJECTIVE: reports improvement in back and abdominal wall pain/tenderness. Low grade fever. No nausea/vomiting. OBJECTIVE: Tmax 100.2. Hemodynamically Stable. Last Vital Signs Temp Pulse Resp BP Pulse Ox 98.3 F 92 H 18 113/65 99 10/19/19 08:58 10/19/19 08:58 10/19/19 08:58 10/19/19 08:58 10/19/19 08:58 Heart - S1, S2, RRR Lungs - clear to auscultation Abdomen/Back - erythema/tenderness of skin improving. No collections or discharge from trochar entry sites. Abdomen soft, bowel Sounds normal. Extremities - no edema, no calf tenderness. Neuro - AAO x 3. Tone/Power normal all extremities. Laboratory Results - last 24 hr 10/19/19 10/19/19 07:53 07:53 WBC 8.6 RBC 3.33 L Hgb 10.9 Hct 32.8 MCV 98.4 H MCH 32.6 MCHC 33.1 RDW 12.8 Plt Count 176 MPV 9.4 Sodium 139 Potassium 4.0 Chloride 109 H Carbon Dioxide 25 Anion Gap 5 L BUN 4.2 L Creatinine 0.6 Est GFR (CKD-EPI)AfAm 143.77 Est GFR (CKD-EPI)NonAf 124.04 Random Glucose 99 Calcium 8.3 L Total Bilirubin 1.0 AST 16 ALT 13 Alkaline Phosphatase 59 Total Protein 6.5 Albumin 2.8 L Current Medications Generic Name Dose Route Start Last Admin Trade Name Freq PRN Reason Stop Dose Admin Acetaminophen 650 mg 10/18/19 19:39 Tylenol - PO Q6H PRN FEVER Albuterol Sulfate 1 amp 10/18/19 08:00 10/19/19 08:00 Ventolin 0.083% Nebulizer Soln - NEB 1 amp RQID DUANE Administration Heparin Sodium (Porcine) 5,000 unit 10/18/19 14:00 10/19/19 06:43 Heparin - SQ 5,000 unit TID DUANE Administration Sodium Chloride 1,000 mls @ 100 mls/hr 10/17/19 22:00 10/19/19 09:07 Normal Saline - IV 100 mls/hr ASDIR DUANE Administration Piperacillin Sod/Tazobactam 50 mls @ 100 mls/hr 10/18/19 18:00 10/19/19 09:17 Sod 2.25 gm/ Dextrose IVPB 100 mls/hr Q8H-IV DUANE Administration Protocol Morphine Sulfate 2 mg 10/18/19 06:00 10/19/19 03:09 Morphine Sulfate IVPUSH 2 mg Q4H PRN Administration PAIN LEVEL 6-10 Ondansetron HCl 4 mg 10/18/19 04:12 Zofran Injection IVPUSH Q6H PRN NAUSEA Home Medications Medication Instructions Recorded Albuterol Sulfate Inhaler - 1 - 2 inh PO Q4H 10/19/19 [Ventolin Hfa Inhaler -] ASSESSMENT AND PLAN: 28 year old female with history of Asthma, s/p abdominal liposuction abdomen/ flank 10/16/2019 under local anesthesia with plastic surgeon in [place], presents with erythema/pain/tenderss over abdominal wall and back with associated subjective fevers and chills. Abdomen/pelvis CT showed extensive subcutaneous air throughout the abdomen and pelvis presumably related to recent procedure. 1. Sepsis secondary to Post-op liposuction Sepsis improving, Tmax 100.2, WBC normalized. CT findings as above, with no drainable collection. Blood Cx neg. Received IV Zosyn/Vanco in ED, Zosyn only continued by ID - continue. Plastic Surgery consulted - Dr. Reyes declined evaluation. Will place call again to Dr. Lujan, who suggested to the nurse that patient should follow with her own Plastic Surgeon, who unfortunately is based in [place] and does not have privileges at this hospital. 2. Asthma - Stable. No evidence of acute exacerbations. Albuterol PRN. 3. Hypokalemia - repleted. DVT Px - Heparin SQ
--- NOTE | 2019-10-19 13:26 | PN ---
Progress Note, Physician History of Present Illness: starting to feel better still tenderness pain improving - Current Medication List Current Medications: Active Medications Acetaminophen (Tylenol -) 650 mg PO Q6H PRN PRN Reason: FEVER Albuterol Sulfate (Ventolin 0.083% Nebulizer Soln -) 1 amp NEB RQID [facility] Last Admin: 10/19/19 12:00 Dose: 1 amp Heparin Sodium (Porcine) (Heparin -) 5,000 unit SQ TID [facility] Last Admin: 10/19/19 06:43 Dose: 5,000 unit Sodium Chloride (Normal Saline -) 1,000 mls @ 100 mls/hr IV ASDIR DUANE Last Admin: 10/19/19 09:07 Dose: 100 mls/hr Piperacillin Sod/Tazobactam (Sod 2.25 gm/ Dextrose) 50 mls @ 100 mls/hr IVPB Q8H-IV DUANE; Protocol Last Admin: 10/19/19 09:17 Dose: 100 mls/hr Morphine Sulfate (Morphine Sulfate) 2 mg IVPUSH Q4H PRN PRN Reason: PAIN LEVEL 6-10 Last Admin: 10/19/19 03:09 Dose: 2 mg Ondansetron HCl (Zofran Injection) 4 mg IVPUSH Q6H PRN PRN Reason: NAUSEA - Objective Vital Signs: Vital Signs Temperature 98.3 F 10/19/19 08:58 Pulse Rate 92 H 10/19/19 08:58 Respiratory Rate 18 10/19/19 08:58 Blood Pressure 113/65 10/19/19 08:58 O2 Sat by Pulse Oximetry (%) 99 10/19/19 08:58 Constitutional: Yes: Calm, Mild Distress Cardiovascular: Yes: S1, S2 Respiratory: Yes: Regular, CTA Bilaterally Gastrointestinal: Yes: Normal Bowel Sounds, Soft, Tenderness (on palpation) Musculoskeletal: Yes: WNL Extremities: Yes: Other Integumentary: Yes: Erythema, Other (abd erythema improving) Neurological: Yes: Alert, Oriented Psychiatric: Yes: Alert, Oriented Labs: CBC, BMP 10/19/19 07:53 10/19/19 07:53 INR, PTT INR 1.37 (0.83-1.09) H 10/17/19 15:30 Assessment/Plan 28 year old female with history of Asthma, s/p abdominal liposuction abdomen with fever chills and tenderness post procedure Abdomen/pelvis CT showed extensive subcutaneous air throughout the abdomen and pelvis presumably related to recent procedure. leukocytosis abd erythema asthma tenderness plan continue abx await for plastics to see the patient once stable will switch to po monitor
--- NOTE | 2019-10-19 15:13 | PN ---
Physical Exam: SUBJECTIVE: Patient seen and examined. Pt has mildly improved. Pt tenderness has decreased. She is awake and moving around. Pt is urinating. Afebrile and asymptomatic. Denies f/c/n/v/d/c, sob, chest pain. OBJECTIVE: Vital Signs Period Temp Pulse Resp BP Sys/Dean Pulse Ox Last 24 Hr 98.3 F-100.2 F 82-110 18-18 104-113/53-65 98-99 GENERAL: AOx3, mild acute distress. EYES: PERRL, extraocular movements intact, No ptosis. ENT: oropharynx clear without exudates, moist mucous membranes. NECK: Trachea midline, full range of motion, supple. LUNGS: Breath sounds equal, clear to auscultation bilaterally, no wheezes, no crackles, HEART: Regular rate and rhythm, S1, S2 without murmur, rub or gallop. ABDOMEN: Soft, nontender, nondistended, normoactive bowel sounds, no guarding, surgical scar intact, no pus, no erythema no drainage. B EXTREMITIES: 2+ pulses, warm, well-perfused, no edema. Back: large area of erythema from T10- S1, mild swelling under the skin noted, very tender to touch. NEUROLOGICAL: Normal speech, gait not observed. Neuro strength 5/5 b/l UE and LE, sensation 5/5 UE and LE b/l SKIN: Warm, dry, normal turgor, no rashes or lesions noted Laboratory Results - last 24 hr CBC,CMP WBC 8.6 K/mm3 (4.0-10.0) 10/19/19 07:53 RBC 3.33 M/mm3 (3.60-5.2) L 10/19/19 07:53 Hgb 10.9 GM/dL (10.7-15.3) 10/19/19 07:53 Hct 32.8 % (32.4-45.2) 10/19/19 07:53 MCV 98.4 fl (80-96) H 10/19/19 07:53 MCH 32.6 pg (25.7-33.7) 10/19/19 07:53 MCHC 33.1 g/dl (32.0-36.0) 10/19/19 07:53 RDW 12.8 % (11.6-15.6) 10/19/19 07:53 Plt Count 176 K/MM3 (134-434) 10/19/19 07:53 MPV 9.4 fl (7.5-11.1) 10/19/19 07:53 Absolute Neuts (auto) 8.3 K/mm3 (1.5-8.0) H 10/18/19 05:48 Neutrophils % 80.4 % (42.8-82.8) 10/18/19 05:48 Lymphocytes % 13.9 % (8-40) D 10/18/19 05:48 Monocytes % 5.4 % (3.8-10.2) 10/18/19 05:48 Eosinophils % 0.1 % (0-4.5) D 10/18/19 05:48 Basophils % 0.2 % (0-2.0) 10/18/19 05:48 Nucleated RBC % 0 % (0-0) 10/18/19 05:48 Sodium 139 mmol/L (136-145) 10/19/19 07:53 Potassium 4.0 mmol/L (3.5-5.1) 10/19/19 07:53 Chloride 109 mmol/L (98-107) H 10/19/19 07:53 Carbon Dioxide 25 mmol/L (21-32) 10/19/19 07:53 Anion Gap 5 MMOL/L (8-16) L 10/19/19 07:53 BUN 4.2 mg/dL (7-18) L 10/19/19 07:53 Creatinine 0.6 mg/dL (0.55-1.3) 10/19/19 07:53 Est GFR (CKD-EPI)AfAm 143.77 10/19/19 07:53 Est GFR (CKD-EPI)NonAf 124.04 10/19/19 07:53 Random Glucose 99 mg/dL (74-106) 10/19/19 07:53 Lactic Acid 1.6 mmol/L (0.4-2.0) 10/17/19 15:30 Calcium 8.3 mg/dL (8.5-10.1) L 10/19/19 07:53 Total Bilirubin 1.0 mg/dL (0.2-1) 10/19/19 07:53 AST 16 U/L (15-37) 10/19/19 07:53 ALT 13 U/L (13-61) 10/19/19 07:53 Alkaline Phosphatase 59 U/L (45-117) 10/19/19 07:53 Total Protein 6.5 g/dl (6.4-8.2) 10/19/19 07:53 Albumin 2.8 g/dl (3.4-5.0) L 10/19/19 07:53 Serum , Qual Negative 10/17/19 15:30 Active Medications Current Medications Acetaminophen (Tylenol -) 650 mg PO Q6H PRN PRN Reason: FEVER Albuterol Sulfate (Ventolin 0.083% Nebulizer Soln -) 1 amp NEB RQID [facility] Last Admin: 10/19/19 12:00 Dose: 1 amp Heparin Sodium (Porcine) (Heparin -) 5,000 unit SQ TID [facility] Last Admin: 10/19/19 06:43 Dose: 5,000 unit Sodium Chloride (Normal Saline -) 1,000 mls @ 100 mls/hr IV ASDIR DUANE Last Admin: 10/19/19 09:07 Dose: 100 mls/hr Piperacillin Sod/Tazobactam (Sod 2.25 gm/ Dextrose) 50 mls @ 100 mls/hr IVPB Q8H-IV DUANE; Protocol Last Admin: 10/19/19 09:17 Dose: 100 mls/hr Morphine Sulfate (Morphine Sulfate) 2 mg IVPUSH Q4H PRN PRN Reason: PAIN LEVEL 6-10 Last Admin: 10/19/19 03:09 Dose: 2 mg Ondansetron HCl (Zofran Injection) 4 mg IVPUSH Q6H PRN PRN Reason: NAUSEA Home Medications Medication Instructions Recorded Albuterol Sulfate Inhaler - 1 - 2 inh PO Q4H 10/19/19 [Ventolin Hfa Inhaler -] Microbiology 10/18/19 04:00 Urine - Urine Clean Catch Urine Culture - Final NO GROWTH OBTAINED 10/17/19 15:30 Blood - Peripheral Venous Blood Culture - Preliminary NO GROWTH OBTAINED AFTER 24 HOURS, INCUBATION TO CONTINUE FOR 4 DAYS. 10/17/19 15:15 Blood - Peripheral Venous Blood Culture - Preliminary NO GROWTH OBTAINED AFTER 24 HOURS, INCUBATION TO CONTINUE FOR 4 DAYS. ASSESSMENT/PLAN: 28 y/o F with PMH of asthma, psoriasis, and s/p Liposuction POD2 in [place], presented c/o of lower back pain associated with subjective fevers, 1 episode of NBNB vomiting, and nausea #Back pain likely 2/2 to cellulitis erythema, tenderness and swelling T max 100.2 Continue Zosyn morphine 2mg Q6H for pain Can give tramadol if pain is not manageable. monitor potassium in am Plastic surgery consulted- Dr. Reyes declined. Dr. Dk Swain consulted, who spoke to the nurse and suggested that her plastic surgeon should see her but unfortunately her plastic surgeon is based in [place] w/ no privileges here at [facility]. Pt's plastic surgeon is Dr. Marcelino Goldstein MD, , [place]: [phone] #Hyperbili T-bili normalized FEN IVF at 100 monitor lytes regular diet Dispo: cont abx, f/u plastic surgery- Dr. Swain Visit type - Emergency Visit Emergency Visit: Yes ED Registration Date: 10/17/19 Care time: The patient presented to the Emergency Department on the above date and was hospitalized for further evaluation of their emergent condition. - New Patient This patient is new to me today: Yes Date on this admission: 10/20/19 - Critical Care Critical Care patient: No - Discharge Referral Referred to [facility] Med P.C.: No ATTENDING PHYSICIAN STATEMENT I saw and evaluated the patient. I reviewed the resident's note and discussed the case with the resident. I agree with the resident's findings and plan as documented. SUBJECTIVE: OBJECTIVE: ASSESSMENT AND PLAN:
[2019-10-20] MEDS ORDERED: PIPERACILLIN/TAZOBACTAM 2.25 GM VIAL IVPB ONE ×2 (01:29→09:16)
[2019-10-20] MEDS ORDERED: DEXTROSE 5%-WATER - 50 ML IVPB ONE ×2 (01:29→09:16)
[2019-10-20] MEDS: PIPERACILLIN/TAZOB 2.25 GM 2.25 GM in DEXTROSE 5%-WATER - 50 ML IVPB SCH ×2 (01:50→10:03)
[2019-10-20] MEDS: HEPARIN NA (PORCINE) 5,000 UNITS/ML 1ML VIAL SQ SCH ×2 (05:31→14:45)
[2019-10-20] MEDS: SODIUM CHLORIDE 1,000 ML IV SCH (06:34)
[2019-10-20] MEDS: ALBUTEROL SO4 0.083% IH SOL 2.5 MG/3 ML VIAL.NEB. NEB SCH ×2 (08:45→11:21)
[2019-10-20 09:24] LABS: HEMOGLOBIN 11.1 GM/dL (10.7-15.3); MCH 33.1 pg (25.7-33.7); MCHC 33.7 g/dl (32.0-36.0); MEAN CELL VOLUME 98.2 fl (80-96); MEAN PLT VOLUME 9.5 fl (7.5-11.1); PLATELET COUNT 198 K/MM3 (134-434); RBC 3.36 M/mm3 (3.60-5.2); RDW 12.8 % (11.6-15.6); WHITE BLOOD COUNT 4.5 K/mm3 (4.0-10.0)
[2019-10-20 10:37] LABS: ALBUMIN 2.8 g/dl (3.4-5.0); BILIRUBIN,TOTAL 0.7 mg/dL (0.2-1); CALCIUM 8.5 mg/dL (8.5-10.1); CREATININE 0.6 mg/dL (0.55-1.3); POTASSIUM 3.8 mmol/L (3.5-5.1); TOT PROT 6.6 g/dl (6.4-8.2)
[2019-10-20 10:42] LABS: BLOOD UREA NITROGEN 2.6 mg/dL (7-18)
--- NOTE | 2019-10-20 13:10 | PN ---
Teaching Attending Note Name of Resident: Alon Mead ATTENDING PHYSICIAN STATEMENT I saw and evaluated the patient. I reviewed the resident's note and discussed the case with the resident. I agree with the resident's findings and plan as documented. SUBJECTIVE: reports significant improvement in back and abdominal wall pain/ tenderness. Low grade fever. No nausea/vomiting. OBJECTIVE: Afbebriel, Hemodynamically Stable. Last Vital Signs Temp Pulse Resp BP Pulse Ox 98.1 F 104 H 18 102/62 99 10/20/19 10:05 10/20/19 10:05 10/20/19 10:05 10/20/19 10:05 10/19/19 21:00 Heart - S1, S2, RRR Lungs - clear to auscultation Abdomen/Back - erythema/tenderness of skin much improved. No collections or discharge from trochar entry sites. Abdomen soft, bowel Sounds normal. Extremities - no edema, no calf tenderness. Neuro - AAO x 3. Tone/Power normal all extremities. Laboratory Results - last 24 hr 10/20/19 10/20/19 08:44 08:44 WBC 4.5 RBC 3.36 L Hgb 11.1 Hct 33.0 MCV 98.2 H MCH 33.1 MCHC 33.7 RDW 12.8 Plt Count 198 MPV 9.5 Sodium 141 Potassium 3.8 Chloride 110 H Carbon Dioxide 25 Anion Gap 6 L BUN 2.6 L* Creatinine 0.6 Est GFR (CKD-EPI)AfAm 143.77 Est GFR (CKD-EPI)NonAf 124.04 Random Glucose 81 Calcium 8.5 Total Bilirubin 0.7 AST 16 ALT 16 Alkaline Phosphatase 57 Total Protein 6.6 Albumin 2.8 L Current Medications Generic Name Dose Route Start Last Admin Trade Name Freq PRN Reason Stop Dose Admin Acetaminophen 650 mg 10/18/19 19:39 10/20/19 11:59 Tylenol - PO 650 mg Q6H PRN Administration FEVER Albuterol Sulfate 1 amp 10/18/19 08:00 10/20/19 11:21 Ventolin 0.083% Nebulizer Soln - NEB 1 amp RQID DUANE Administration Heparin Sodium (Porcine) 5,000 unit 10/18/19 14:00 10/20/19 05:31 Heparin - SQ Not Given TID DUANE Sodium Chloride 1,000 mls @ 100 mls/hr 10/17/19 22:00 10/20/19 06:34 Normal Saline - IV 100 mls/hr ASDIR DUANE Administration Piperacillin Sod/Tazobactam 50 mls @ 100 mls/hr 10/18/19 18:00 10/20/19 10:03 Sod 2.25 gm/ Dextrose IVPB 100 mls/hr Q8H-IV DUANE Administration Protocol Morphine Sulfate 2 mg 10/18/19 06:00 10/19/19 23:06 Morphine Sulfate IVPUSH 2 mg Q4H PRN Administration PAIN LEVEL 6-10 Ondansetron HCl 4 mg 10/18/19 04:12 Zofran Injection IVPUSH Q6H PRN NAUSEA Home Medications Medication Instructions Recorded Albuterol Sulfate Inhaler - 1 - 2 inh PO Q4H 10/19/19 [Ventolin Hfa Inhaler -] Amoxicillin/Potassium Clav 1 each PO BID #20 tablet 10/20/19 [Augmentin 875-125 Tablet] ASSESSMENT AND PLAN: 28 year old female with history of Asthma, s/p abdominal liposuction abdomen/ flank 10/16/2019 under local anesthesia with plastic surgeon in [place], presents with erythema/pain/tenderness over abdominal wall and back with associated subjective fevers and chills. Abdomen/pelvis CT showed extensive subcutaneous air throughout the abdomen and pelvis presumably related to recent procedure. 1. Sepsis secondary to Post-op liposuction Sepsis resolved, fever resolved, WBC normalized. CT findings as above, with no drainable collection. Blood Cx neg. Received IV Zosyn/Vanco in ED, Zosyn only continued by ID - will transition to Augementin for 10 additional days with out-patient follow up on Wednesday with her own Plastic Surgeon in [place]. Plastic Surgery consulted - Dr. Reyes and Dr. Lujan declined evaluation. 2. Asthma - Stable. No evidence of acute exacerbations. Albuterol PRN. 3. Hypokalemia - repleted. Medicaly stable for discharge with out-patient Plastic surgery follow up.
--- NOTE | 2019-10-20 14:20 | DS ---
Physical Exam: SUBJECTIVE: Patient seen and examined OBJECTIVE: Vital Signs Period Temp Pulse Resp BP Sys/Dean Pulse Ox Last 24 Hr 97.7 F-98.6 F 78-104 18-20 102-112/53-71 99 PHYSICAL EXAM GENERAL: The patient is awake, alert, and fully oriented, in no acute distress. HEAD: Normal with no signs of trauma. EYES: PERRL, extraocular movements intact, sclera anicteric, conjunctiva clear. ENT: Ears normal, nares patent, oropharynx clear without exudates, moist mucous membranes. NECK: Trachea midline, full range of motion, supple. LUNGS: Breath sounds equal, clear to auscultation bilaterally, no wheezes, no crackles, no accessory muscle use. HEART: Regular rate and rhythm, S1, S2 without murmur, rub or gallop. ABDOMEN: Soft, nontender, nondistended, normoactive bowel sounds, no guarding, no rebound, no hepatosplenomegaly, no masses. EXTREMITIES: 2+ pulses, warm, well-perfused, no edema. NEUROLOGICAL: Cranial nerves II through XII grossly intact. Normal speech, gait not observed. PSYCH: Normal mood, normal affect. SKIN: Warm, dry, normal turgor, no rashes or lesions noted. LABS Laboratory Results - last 24 hr 10/20/19 10/20/19 08:44 08:44 WBC 4.5 RBC 3.36 L Hgb 11.1 Hct 33.0 MCV 98.2 H MCH 33.1 MCHC 33.7 RDW 12.8 Plt Count 198 MPV 9.5 Sodium 141 Potassium 3.8 Chloride 110 H Carbon Dioxide 25 Anion Gap 6 L BUN 2.6 L* Creatinine 0.6 Est GFR (CKD-EPI)AfAm 143.77 Est GFR (CKD-EPI)NonAf 124.04 Random Glucose 81 Calcium 8.5 Total Bilirubin 0.7 AST 16 ALT 16 Alkaline Phosphatase 57 Total Protein 6.6 Albumin 2.8 L Home Medications Medication Instructions Recorded Albuterol Sulfate Inhaler - 1 - 2 inh PO Q4H 10/19/19 [Ventolin HFA Inhaler -] Alprazolam [Xanax] 1 tab PO DAILY 10/20/19 Amoxicillin/Potassium Clav 1 each PO BID #20 tablet 10/20/19 [Augmentin 875-125 Tablet] Oxycodone HCl/Acetaminophen 1 tab PO Q6H PRN 10/20/19 [Percocet 5-325 mg Tablet] Microbiology 10/17/19 15:15 Blood - Peripheral Venous Blood Culture - Preliminary NO GROWTH OBTAINED AFTER 48 HOURS, INCUBATION TO CONTINUE FOR 3 DAYS. 10/17/19 15:30 Blood - Peripheral Venous Blood Culture - Preliminary NO GROWTH OBTAINED AFTER 48 HOURS, INCUBATION TO CONTINUE FOR 3 DAYS. 10/18/19 04:00 Urine - Urine Clean Catch Urine Culture - Final NO GROWTH OBTAINED HOSPITAL COURSE: Date of Admission:10/17/19 28 y/o F with PMH of asthma, psoriasis, and s/p Liposuction POD2 in [place], presented c/o of lower back pain associated with subjective fevers T max 100.2, 1 episode of NBNB vomiting, and nausea, erythema and swelling of the lower back admitted for sepsis from cellulitis 2/2 to liposuction. Pt was POD2 s/p liposuction in [place] by Surgeon Dr. Marcelino Goldstein. On admission pt's symptoms appeared to be 2/2 to post op infection from likely surgical site or seeded during surgery. Pt was started on Zosyn and her symptoms began to improve. She was initially very tender to touch but after abx improved significantly. Pt's pain was managed with morphine and tramadol. Plastic surgery was consulted, Dr. Reyes declined. Dr. Dk Swain consulted, who spoke to the nurse and suggested that her plastic surgeon should see her but unfortunately her plastic surgeon is based in [place] w/ no privileges here at [facility]. Attempted multiple times to have Dr. Swain see pt but no response. She was on doxycycline at home from her surgeon, which we d/wilton. Pts symptoms improved, and she was discharged on Augmentin 875 BID for 10 days. We set up an appt with Pt's surgeon dr. Goldstein for Wednesday between 2pm and 4pm, spoke to Juvencio Maurer, and advised pt to f/u with him or f/u at Dr. Reddy office. CT- Extensive subcutaneous emphysema throughout abdomen and pelvis with no acute pathlogy, with no drainable collection. CXR: No evidence of atelectasis Pt's plastic surgeon is Dr. Marcelino Goldstein MD, , [employer] Dispatcher: [phone] Date of Discharge: 10/20/19 Minutes to complete discharge: 40 Discharge Summary Problems reviewed: Yes Reason For Visit: CELLULITIS, POSTOPERATIVE FEVER Condition: Improved - Instructions Diet, Activity, Other Instructions: You were admitted to the hospital for back pain While in the hospital we evaluated you with lab work, blood work and imaging including CAT scan of your abdomen. We found that your symptoms were caused by an infection of your skin on your back likely from your surgery. We treated you with medications and your symptoms improved significantly. To complete the treatment of your infection, please take the following antibiotics Augmentin 875 mg by mouth twice a day for 10 days Please take all your medications as prescribed Please also follow up with your surgeon Dr. Woo Goldstein on the day of your appointment as scheduled Wednesday between 2pm-4pm. He will need to re-evaluate you. We have also provided information of our plastic surgeon, Mukesh Swain, who you can also go to. Please follow up with your primary care physician within 1 week, or the primary care physician we have provided. Return to the emergency room, if you experience worsening of your symptoms, chest pain, back pain, abdominal pain or worsening of any of your conditions. Referrals: Mukesh Swain MD [Non Staff, Medical] - Eldon Frausto MD [Staff Physician] - Disposition: HOME - Home Medications Comprehensive Discharge Medication List: Ambulatory Orders Albuterol Sulfate Inhaler - [Ventolin HFA Inhaler -] 1 - 2 inh PO Q4H 10/19/19 Alprazolam [Xanax] 1 tab PO DAILY 10/20/19 Amoxicillin/Potassium Clav [Augmentin 875-125 Tablet] 1 each PO BID #20 tablet 10/20/19 Oxycodone HCl/Acetaminophen [Percocet 5-325 mg Tablet] 1 tab PO Q6H PRN This patient is new to me today: Yes Date on this admission: 10/20/19 Emergency Visit: Yes ED Registration Date: 10/17/19 Care time: The patient presented to the Emergency Department on the above date and was hospitalized for further evaluation of their emergent condition. Critical Care patient: No - Discharge Referral Referred to [facility] No ATTENDING PHYSICIAN STATEMENT I saw and evaluated the patient. I reviewed the resident's note and discussed the case with the resident. I agree with the resident's findings and plan as documented. SUBJECTIVE: OBJECTIVE: ASSESSMENT AND PLAN:
[2019-10-20 14:39] VITALS: BP 134/54; PULSE 64; TEMP 97.6
--- NOTE | 2019-10-20 15:32 | PN ---
Progress Note, Physician - Objective Vital Signs: Vital Signs Temperature 97.6 F 10/20/19 14:36 Pulse Rate 64 10/20/19 14:36 Respiratory Rate 18 10/20/19 14:36 Blood Pressure 134/54 L 10/20/19 14:36 O2 Sat by Pulse Oximetry (%) 99 10/19/19 21:00 Labs: CBC, BMP 10/20/19 08:44 10/20/19 08:44 INR, PTT INR 1.37 (0.83-1.09) H 10/17/19 15:30
== END 2019-10-20 15:26 | disposition home or self-care (01) | DRG 721 ==
LOC: JER 14:22 → JERBED 20:48 → J5S 10-18 21:47
PROVIDERS: ADMIT Internal Medicine
DX: T81.44XA Sepsis following a procedure, initial encounter (principal); R00.0 Tachycardia, unspecified; R50.9 Fever, unspecified; D72.829 Elevated white blood cell count, unspecified; L40.9 Psoriasis, unspecified; E80.6 Other disorders of bilirubin metabolism; Y83.8 Other surgical procedures as the cause of abnormal reaction of the patient, or of later complication, without mention of misadventure at the time of the procedure; J45.909 Unspecified asthma, uncomplicated; R50.82 Postprocedural fever; E87.6 Hypokalemia; L03.312 Cellulitis of back [any part except buttock and flank]; M54.9 Dorsalgia, unspecified
CPT/HCPCS: 36415; 71045-TC-FY; 74177-TC; 80053; 81003; 82803; 83605; 84703; 85025; 85027; 85610; 85730; 87040; 87086; 87804; 93005; 93010; 94640; 99284-25; J0131; J1644; J7030; Q9967